=== PATIENT | female | born 1990 | race Two or more races ===

== ENCOUNTER 2024-05-23 23:26 | Inpatient (IN) | payer OTHER ==
[~2024-05-23] VITALS: Ht 160 cm; Wt 70.2 kg
--- NOTE | 2024-05-23 23:56 | ED.PDOC ---
History of present illness HPI Comments 34-year-old female came to the emergency room due to nausea and vomiting. Patient has history of hypertension and diabetes. States she has good compliance to her medications. For the past few hours. Patient has been having multiple bolus of nausea and vomiting, could not keeping anything in. Patient has history of diabetic ketoacidosis, and she feels she is having the same again today. Blood sugar on scene was 300, and was tachycardic at130's. Chief Complaint: Nausea and vomiting Time Seen by MD: 23:55 History of present illness: Hand Coper Notes Allergies: Coded Allergies: NO KNOWN ALLERGIES (Unverified , 05/24/24) Information Source: Patient Mode of Arrival: EMS Timing: Hours Duration: Since onset Prehospital treatment: None [place]: Shaky, Sweaty Symptoms: Anxious, Shaky, Sweaty History of: Diabetes Modifying factors: Nothing Associated signs and symptoms: Headache Past Medical History PAST MEDICAL HISTORY: DM, HTN Past Medical History (Other): Diabetic ketoacidosis Surgical History: Denies all surgeries EMERGENCY MEDCL EMT History: Denies all EMERGENCY MEDCL EMT Hx Family History Family History: Reviewed,noncontributory to illness Social History Smoker: Non-Smoker Alcohol: Denies ETOH Use Drugs: Denies Drug Use Lives In: Home Constitutional: denies: chills, diaphoresis, fatigue, fever, malaise, sweats, weakness, others EENTM: denies: blurred vision, double vision, ear bleeding, ear discharge, ear drainage, ear pain, ear ringing, eye pain, eye redness, hearing loss, mouth pain, mouth swelling, nasal discharge, nose bleeding, nose congestion, nose pain, photophobia, tearing, throat pain, throat swelling, voice changes, others Respiratory: denies: cough, hemoptysis, orthopnea, SOB at rest, shortness of breath, SOB with excertion, stridor, wheezing, others Cardiovascular: denies: chest pain, dizzy spells, diaphoresis, Dyspnea on exert ion, edema, irregular heart beat, left arm pain, lightheadedness, palpitations, PND, syncope, others Gastrointestinal: reports: abdominal pain, nausea, vomiting; denies: abdomen distended, blood streaked bowels, constipated, diarrhea, dysphagia, difficulty swallowing, hematemesis, melena, poor appetite, poor fluid intake, rectal bleeding, rectal pain, others Genitourinary: denies: abnormal vagina bleeding, burning, dyspareunia, dysuria, flank pain, frequency, hematuria, incontinence, pain, , vagina discharge, urgency, others Neurological: denies: dizziness, fainting, headache, left sided numbness, left sided weakness, numbness, paresthesia, pre-existing deficit, right sided numbness, right sided weakness, seizure, speech problems, tingling, tremors, weakness, others Musculoskeletal: denies: back pain, gout, joint pain, joint swelling, muscle pain, muscle stiffness, neck pain, others Integumetry: denies: bruises, change in color, change in hair/nails, dryness, laceration, lesions, lumps, rash, wounds, others Allergic/Immunocompromised: denies: Difficulty Healing, Frequent Infections, Hives, Itching, others Hematologic/Lymphatic: denies: anemia, blood clots, easy bleeding, easy bruising, swollen glands, others Endocrine: denies: excessive hunger, excessive sweating, excessive thirst, excessive urination, flushing, intolerance to cold, intolerance to heat, unexplained weight gain, unexplained weight loss, others Psychiatric: denies: anxiety, bipolar disorder, depression, hopeless, panic disorder, schizophrenia, sleepless, suicidal, others Physical Exam General Appearance: No Apparent Distress, Normal HEENT: Normal ENT Inspection, Pharynx Normal, TMs Normal Neck: Full Range of Motion, Non-Tender, Normal, Normal Inspection Respiratory: Chest Non-Tender, Lungs Clear, No Accessory Muscle Use, No Respiratory Distress, Normal Breath Sounds Cardiovascular: No Edema, No JVD, No Murmur, No Gallop, Normal Peripheral Pulses, Regular Rate/Rhythm Breast Exam: Deferred Gastrointestinal: Epigastric, No Organomegaly, No Pulsatile Mass, Normal Bowel Sounds, Soft, Tenderness Genitalia: Deferred Pelvic: Deferred Rectal: Deferred Extremities: No calf tenderness, Normal capillary refill, Normal inspection, Normal range of motion, Non-tender, No pedal edema Musculoskeletal : Apperance: Normal Neurologic: Alert, analog ic design architect II-XII nml as Tested, No Motor Deficits, Normal Affect, Normal Mood, No Sensory Deficits Cerebellar Function: Normal Reflexes: Normal Skin: Dry, Normal Color, Warm Lymphatic: No Adenopathy Was a procedure done? Was a procedure done?: No Differential Diagnosis (DM) Differential Diagnosis: Dehydration, DKA, Electrolyte Abnormality, Gastritis, Gastroenteritis, Hyperglycemia, UTI X-Ray, Labs, Meds, VS Vital Signs Date Time Temp Pulse Resp B/P (MAP) Pulse Ox O2 Delivery O2 Flow Rate FiO2 05/24/24 00:48 Room Air* 0 21 05/23/24 23:45 97.6 132 24 109/75 (86) 96 Lab Test 05/24/24 01:00 05/24/24 00:11 05/23/24 23:41 Range/Units Urine Color Light-yellow Yellow Urine Clarity Clear Clear Urine pH 5.0 5.0-9.0 Urine Specific [place] 1.025 1.001-1.035 Urine Protein Trace H Negative Urine Ketones 4+ H Negative Urine Blood Negative Negative /uL Urine Nitrite Negative Negative Urine Bilirubin Negative Negative Urine Urobilinogen Normal Negative mg/dL Urine Leukocyte Esterase Negative Negative /uL Urine RBC 1 0 - 4 /hpf Urine WBC None seen 0 - 5 /hpf Urine Squamous Epithelial Cells Few <5 /hpf Urine Bacteria None seen None Seen /hpf Urine Hyaline Casts Few 0 - 2 /lpf Urine Yeast (Budding) Occasional None Seen /hpf Urine Glucose 4+ H Normal mg/dL White Blood Count 28.1 H 4.4-10.8 10^3/uL Red Blood Count 6.06 H 4.0-5.20 10^6/uL Hemoglobin 17.6 H 12.2-16.2 g/dL Hematocrit 54.4 H 36.0-46.0 % Mean Corpuscular Volume 89.7 80.0-100.0 fL Mean Corpuscular Hemoglobin 29.0 28.0-32.0 pg Mean Corpuscular Hemoglobin Concent 32.3 32.0-36.0 g/dL Red Cell Distribution Width 14.0 11.8-14.3 % Platelet Count 738 H 140-450 10^3/uL Mean Platelet Volume 8.2 6.9-10.8 fL Neutrophils (%) (Auto) 37.0-80.0 % Lymphocytes (%) (Auto) 10.0-50.0 % Monocytes (%) (Auto) 0.0-12.0 % Basophils (%) (Auto) 0.0-2.0 % Neutrophils # (Auto) 1.6-8.6 10 ^3/uL Lymphocytes # (Auto) 0.4-5.4 10 ^3/uL Monocytes # (Auto) 0-1.3 10 ^3/uL Differential Total Cells Counted 100.0 100 Neutrophils % (Manual) 89 H 37.0-80.0 Band Neutrophils % (Manual) 0 Lymphocytes % (Manual) 7 L 10.0-50.0 Monocytes % (Manual) 4 0-12 Eosinophils % (Manual) 0 0-7 Basophils % (Manual) 0 0.0-2.0 Metamyelocytes % (manual) 0 Myelocytes % (Manual) 0 Promyelocytes % (Manual) 0 Blast Cells % (Manual) 0 Reactive Lymphocytes 0 Platelet Estimate Markedly increased Large Platelets Few Giant Platelets Few Sodium Level 134 L 136-145 mmol/L Potassium Level 4.3 3.5-5.1 mmol/L Chloride Level 99 98-107 mmol/L Carbon Dioxide Level < 10 *L 20-31 mmol/L Anion Gap 25.51570 H 5-15 Blood Urea Nitrogen 18 9-23 mg/dL Creatinine 1.43 H 0.550-1.02 mg/dL Glomerular Filtration Rate Calc 49 >90 mL/min BUN/Creatinine Ratio 12.6 10.0-20.0 Serum Glucose 408 *H 74-106 mg/dL Calcium Level 10.6 H 8.7-10.4 mg/dL Beta-Hydroxybutyric Acid Pending POC Glucose 342 H 70-106 mg/dl Current Medications Medications (Trade) Dose Ordered Sig/Cynhtia Route Start Time Stop Time Status Last Admin Ondansetron HCl (Zofran) 4 mg ONCE ONCE IV 05/24/24 00:00 05/24/24 00:01 DC 05/24/24 00:39 Sodium Chloride 1,000 ml @ 1,000 mls/hr Q1H ONCE IV 05/24/24 00:00 05/24/24 00:59 DC 05/24/24 00:37 Famotidine (Pepcid Injection) 20 mg ONCE ONCE IV 05/24/24 00:00 05/24/24 00:01 DC 05/24/24 00:41 Time of 1ST Reevaluation: 23:50 Reevaluation 1ST: Unchanged Patient Education/Counseling: Diagnosis, Treatment Family Education/Counseling: No Family Present Departure 1 Departure Time of Disposition: 02:15 (Patient presents in DKA. Treating treating patient with fluids and insulin. We will admit patient to ICU) Impression: Primary Impression: DKA, type 2 Qualified Codes: E11.10 - Type 2 diabetes mellitus with ketoacidosis without coma Additional Impression: Projectile vomiting with nausea Disposition: ADMITTED INPATIENT Admit to: ICU Condition: Critical Critical Care Note Critical Care Time?: Yes (35 min-critical care time only) Critical care comment: Hyperglycemia, DKA Authorized and Performed by: Reshma Rudolph MD Total critical care time: Approximately 38 minutes Due to a high probability of clinically significant, life threatening deterioration, the patient required my highest level of preparedness to intervene emergently and I personally spent this critical care time directly and personally managing the patient. This critical care time included obtaining a history; examining the patient; pulse oximetry; ordering and review of studies; arranging urgent treatment with development of a management plan; evaluation of patient's response to treatment; frequent reassessment; and, discussions with other providers. This critical care time was performed to assess and manage the high probability of imminent, life-threatening deterioration that could result in multi-organ failure. It was exclusive of separately billable procedures and treating other patients and teaching time. Please see my other sections and the rest of the note for further information on patient assessment and treatment. Stability Stability form required: No Heart Score Heart Score: Heart Score Response (Comments) Value History N/A 0 EKG N/A 0 Age N/A 0 Risk Factors N/A 0 Troponin N/A 0 Total 0 I personally scribed for RESHMA RUDOLPH MD ([email or web address]) on 05/23/24 at 23:56. Electronically submitted by Doe House ([email or web address]). RESHMA RUDOLPH MD May 23, 2024 23:56
[2024-05-24 00:22] LABS: Hemoglobin 17.6 g/dL (12.2-16.2)
[2024-05-24 00:24] LABS: Hematocrit 54.4 % (36.0-46.0); Mean Corpuscular Hgb Conc. 32.3 g/dL (32.0-36.0); Mean Corpuscular Volume 89.7 fL (80.0-100.0); Platelet Count (auto) 738 10^3/uL (140-450); Red Blood Cells 6.06 10^6/uL (4.0-5.20); White Blood Cell 28.1 10^3/uL (4.4-10.8)
[2024-05-24] MEDS: SODIUM CHLORIDE 0.9% 1,000 ML IV ONE (00:37)
[2024-05-24] MEDS: ONDANSETRON HCL 4 MG/2 ML VIAL IV ONE ×2 (00:39→03:13)
[2024-05-24 00:41] LABS: Band Neutrophils % (manual) 0; Basophils % (manual) 0 (0.0-2.0); Blast Cells 0; Eosinophils % (manual) 0 (0-7); Metamyelocytes % 0; Myelocytes % 0; Promyelocytes % 0; Reactive Lymphocytes 0
[2024-05-24] MEDS: FAMOTIDINE (10MG/ML) 2ML VL IV ONE (00:41)
[2024-05-24 01:35] LABS: Lymphocytes % (manual) 7 (10.0-50.0); Monocytes % (manual) 4 (0-12)
[2024-05-24 01:36] LABS: Giant Platelets Few; Large Platelets FEW
[2024-05-24 01:37] LABS: Platelet Estimate Markedly Increased
[2024-05-24 01:44] LABS: Urine Bacteria None Seen /hpf (None Seen); Urine WBC None Seen /hpf (0 - 5)
[2024-05-24 01:55] LABS: Urine Blood Negative /uL (Negative); Urine Budding Yeast OCCASIONAL /hpf (None Seen); Urine Clarity Clear (Clear); Urine Color Light-Yellow (Yellow); Urine Hyaline Cast FEW /lpf (0 - 2); Urine Protein, UAD TRACE (Negative); Urine Specific Gravity 1.025 (1.001-1.035); Urine Squamous Epithelial Cell FEW /hpf (<5); Urine Urobilinogen Normal (Negative)
--- NOTE | 2024-05-24 02:00 | DVH ---
CHEST RADIOGRAPH Indication: vomiting Technique: Frontal and lateral view of the chest was obtained Comparison: None FINDINGS: Lines and Tubes: None Lungs: Clear Pleura: No effusion. No pneumothorax. Cardiomediastinal contours: Unremarkable Bones: Unremarkable IMPRESSION: 1. No evidence of acute disease.
[2024-05-24 02:02] LABS: Chloride 99 mmol/L (98-107); Potassium 4.3 mmol/L (3.5-5.1)
[2024-05-24 02:03] LABS: Anion Gap 25.00001 (5-15)
[2024-05-24 02:06] LABS: Calcium 10.6 mg/dL (8.7-10.4); Sodium 134 mmol/L (136-145)
[2024-05-24 02:08] LABS: BUN/Creatinine Ratio 12.6 (10.0-20.0); Blood Urea Nitrogen 18 mg/dL (9-23); Carbon Dioxide < 10 mmol/L (20-31)
[2024-05-24 02:11] LABS: Glucose 408 mg/dL (74-106)
[2024-05-24] MEDS ORDERED: DEXTROSE (50%) 50ML SYRG IV PRN ×2 (02:15→13:30)
[2024-05-24] MEDS: SODIUM CHLORIDE 0.9% 1,000 ML IV SCH ×3 (02:38→11:44)
[2024-05-24] MEDS: INSULIN LANTUS (GLARGINE) 1 /0.01ml (100units/ml) SC ONE ×2 (02:44→13:44)
[2024-05-24] MEDS: ACCU-CHEK COMFORT CURVE STRIP VI SCH ×2 (02:48→20:11)
[2024-05-24] MEDS: INSULIN DRIP 100 UNIT/100ML 100 ML IV SCH (02:49)
[2024-05-24 03:00] VITALS: PULSE 125; RESP 15; O2SAT 99
[2024-05-24] MEDS ORDERED: DOCUSATE SOD 100 MG CAP PO PRN (03:15)
[2024-05-24] MEDS ORDERED: HYDROcodone-ACET 5/325MG TAB PO PRN (03:15)
[2024-05-24] MEDS ORDERED: hydrALAZINE HCL 20 MG/ML VL IV PRN (03:15)
[2024-05-24 04:05] LABS: Magnesium 2.7 mg/dL (1.6-2.6); Phosphorus 7.8 mg/dL (2.4-5.1)
--- NOTE | 2024-05-24 04:50 | DVHHP2 ---
History of Present Illness Reason for Visit: Diabetic ketoacidosis History of Present Illness The patient is a 34-year-old female with past medical history of DKA, DM, and hypertension who presented to [facility] ED for evaluation of nausea and vomiting. Patient reports having multiple intractable nausea, vomiting unable to keep anything down getting worse that prompted this visit. Patient was seen and evaluated in the ED, laboratory data shows elevated WBC 28.1, hemoglobin 17.6, hematocrit 54.4, platelets 738, sodium 134, potassium 4.3, BUN 18, creatinine 1.43, GFR 49, glucose 408, anion gap 25, acetone > 4.500, phosphorus 7.8, Mag 2.7, calcium 10.6. Chest x-ray show no evidence of acute disease. Patient was started insulin drip, please see medication section in the computer. On my assessment, patient denied chest pain, no headache, no dizziness, no diaphoresis, no shortness of breath, no abdominal pain, no diarrhea, no nausea, vomiting, fever chills. Patient was admitted for further evaluation medical management. Past Medical History DM, HTN, Diabetic ketoacidosis Past Surgical History Denies all surgeries Family History Reviewed, noncontributory to the management of this case. Past Social History The patient lives at home, denies smoking, alcohol or illicit drugs abuse. Review of Systems Constitutional: Yes: Weakness; No: Fever, Chills, Sweats, Malaise, Other Eyes: No: Pain, Vision change, Conjunctivae inflammation, Eyelid inflammation, Other, Redness ENT: No: Ear pain, Ear discharge, Nose pain, Nose discharge, Nose congestion, Mouth pain, Mouth swelling, Throat pain, Throat swelling, Other Respiratory: No: Cough, Dry, Shortness of breath, SOB with excertion, Wheezing, Hemoptysis, Pleuritic Pain, Sputum, Wheezing, Other Cardiovascular: No: Chest Pain, Palpitations, Orthopnea, Paroxysmal Noc. Dyspnea, Edema, Lt Headedness, Other Gastrointestinal: Nausea, Vomiting, Abdominal Pain; No: Diarrhea, Constipation, Melena, Hematochezia, Other Genitourinary: No Dysuria, No Frequency, No Incontinence, No Hematuria, No Retention, No Other Musculoskeletal: No: other, neck pain, shoulder pain, arm pain, back pain, hand pain, leg pain, foot pain Skin: No: Rash, Lesions, Jaundice, Bruising, Other Neurological: No: Weakness, Numbness, Incoordination, Change in speech, Confusion, Seizures, Other Allergies: Coded Allergies: NO KNOWN ALLERGIES (Unverified , 05/24/24) Medications Current Medications Medications Dose Ordered Sig/Cynthia Route Start Time Stop Time Status Last Admin Dose Admin Sodium Chloride 1,000 ml @ 500 mls/hr Q2H IV 05/24/24 02:15 05/24/24 06:14 05/24/24 04:29 500 MLS/HR Sodium Chloride 1,000 ml @ 250 mls/hr Q4H IV 05/24/24 06:15 05/24/24 08:14 Sodium Chloride 1,000 ml @ 150 mls/hr Q6H40M IV 05/24/24 08:15 Insulin Human (Reg)/Sodium Chloride 100 ml @ 0.5 mls/hr Q24H IV 05/24/24 02:15 05/24/24 02:49 6 MLS/HR Dextrose 50 ml UD PRN IV 05/24/24 02:15 Diagnostic Test (Pha) 1 strip Q90MIN 05/24/24 03:00 05/24/24 04:23 1 STRIP Insulin Glargine 15 units DAILY SC 05/25/24 10:00 Hydralazine HCl 10 mg Q6HP PRN IV 05/24/24 03:15 Heparin Sodium (Porcine) 5,000 units Q12HR SC 05/24/24 10:00 Acetaminophen/ Hydrocodone Bitart 1 tab Q4HP PRN PO 05/24/24 03:15 Ondansetron HCl 4 mg Q4HP PRN IV 05/24/24 03:15 Docusate Sodium 100 mg BIDPRN PRN PO 05/24/24 03:15 Acetaminophen 650 mg Q6HP PRN PO 05/24/24 03:15 Exam Vital Signs Vital Signs Date Time Temp Pulse Resp B/P (MAP) Pulse Ox O2 Delivery O2 Flow Rate FiO2 05/24/24 04:00 126 21 130/79 (96) 99 05/24/24 03:00 Room Air* 0 21 05/24/24 02:24 97.7 97.7 General Appearance: Alert, Oriented X3, Cooperative, No acute distress HEENT: Atraumatic, PERRLA, EOMI, Mucous membr. moist/pink Respiratory: Clear to auscultation, Normal air movement Cardiovascular: Regular rate, Normal S1, Normal S2, No murmurs Abdominal: Normal bowel sounds, Soft, No tenderness, No hepatospenomegaly, No masses Extremities: No clubbing, No cyanosis, No edema, Normal pulses, No tenderness/swelling Skin: No rashes, No breakdown, No significant lesion Neuro: Normal speech, Normal tone, Sensation intact, Cranial nerves 3-12 NL, Reflexes 2+, Other (Generalized weakness) Psych/Mental Status: Mental status NL, Mood NL Labs/Xrays Labs Test 05/24/24 04:25 05/24/24 02:30 05/24/24 02:29 05/24/24 01:00 Range/Units POC Glucose 230 H 70-106 mg/dl Phosphorus Level 7.8 H 2.4-5.1 mg/dL Magnesium Level 2.7 H 1.6-2.6 mg/dL Blood Gas Specimen Type Arterial Blood Gas Sample Site Left brachial Blood Gas Patient Temperature 37.0 Arterial Blood Date Drawn [id number] Arterial Blood pH 7.184 *L 7.350-7.450 Arterial Blood Partial Pressure CO2 < 12.6 *L 32.0-45.0 mmHg Arterial Blood Partial Pressure O2 119.6 H 83.0-108.0 mmHg Arterial Blood Oxygen Saturation 97.9 94.0-98.0 % Arterial Blood Oxyhemoglobin 96.4 94.0-98.0 % Arterial Blood Carboxyhemoglobin 0.9 0.5-1.5 % Arterial Blood Methemoglobin 0.6 0.0-1.5 % Chris Test N/a Blood Gas Total Hemoglobin 17.10 H 12.0-16.0 g/dL Blood Gas Liter Flow 0.00 Blood Gas Modality Room air FiO2 % 21.0 Blood Gas Critical Value Read Back yes Blood Gas Notified Whom jeoy Rudolph md Blood Gas Notified Time [id number] Blood Gas Notified By miles dinero, rt Urine Color Light-yellow Yellow Urine Clarity Clear Clear Urine pH 5.0 5.0-9.0 Urine Specific [place] 1.025 1.001-1.035 Urine Protein Trace H Negative Urine Ketones 4+ H Negative Urine Blood Negative Negative /uL Urine Nitrite Negative Negative Urine Bilirubin Negative Negative Urine Urobilinogen Normal Negative mg/dL Urine Leukocyte Esterase Negative Negative /uL Urine RBC 1 0 - 4 /hpf Urine WBC None seen 0 - 5 /hpf Urine Squamous Epithelial Cells Few <5 /hpf Urine Bacteria None seen None Seen /hpf Urine Hyaline Casts Few 0 - 2 /lpf Urine Yeast (Budding) Occasional None Seen /hpf Urine Glucose 4+ H Normal mg/dL Test 05/24/24 00:11 Range/Units White Blood Count 28.1 H 4.4-10.8 10^3/uL Red Blood Count 6.06 H 4.0-5.20 10^6/uL Hemoglobin 17.6 H 12.2-16.2 g/dL Hematocrit 54.4 H 36.0-46.0 % Mean Corpuscular Volume 89.7 80.0-100.0 fL Mean Corpuscular Hemoglobin 29.0 28.0-32.0 pg Mean Corpuscular Hemoglobin Concent 32.3 32.0-36.0 g/dL Red Cell Distribution Width 14.0 11.8-14.3 % Platelet Count 738 H 140-450 10^3/uL Mean Platelet Volume 8.2 6.9-10.8 fL Neutrophils (%) (Auto) 37.0-80.0 % Lymphocytes (%) (Auto) 10.0-50.0 % Monocytes (%) (Auto) 0.0-12.0 % Basophils (%) (Auto) 0.0-2.0 % Neutrophils # (Auto) 1.6-8.6 10 ^3/uL Lymphocytes # (Auto) 0.4-5.4 10 ^3/uL Monocytes # (Auto) 0-1.3 10 ^3/uL Differential Total Cells Counted 100.0 100 Neutrophils % (Manual) 89 H 37.0-80.0 Band Neutrophils % (Manual) 0 Lymphocytes % (Manual) 7 L 10.0-50.0 Monocytes % (Manual) 4 0-12 Eosinophils % (Manual) 0 0-7 Basophils % (Manual) 0 0.0-2.0 Metamyelocytes % (manual) 0 Myelocytes % (Manual) 0 Promyelocytes % (Manual) 0 Blast Cells % (Manual) 0 Reactive Lymphocytes 0 Platelet Estimate Markedly increased Large Platelets Few Giant Platelets Few Sodium Level 134 L 136-145 mmol/L Potassium Level 4.3 3.5-5.1 mmol/L Chloride Level 99 98-107 mmol/L Carbon Dioxide Level < 10 *L 20-31 mmol/L Anion Gap 25.76552 H 5-15 Blood Urea Nitrogen 18 9-23 mg/dL Creatinine 1.43 H 0.550-1.02 mg/dL Glomerular Filtration Rate Calc 49 >90 mL/min BUN/Creatinine Ratio 12.6 10.0-20.0 Serum Glucose 408 *H 74-106 mg/dL Calcium Level 10.6 H 8.7-10.4 mg/dL Beta-Hydroxybutyric Acid > 4.500 H < 0.4 mmol/L PATIENT: ELY HERNANDEZ ACCT: [id number] UNIT: [id number] : 1990 LOC: ER ROOM / BED: / AGE / SEX: 34 / F ADM STATUS: REG ER SERVICE 014 ORDERING PHYSICIAN: JOEY RUDOLPH MD PROCEDURE(s): CXR2 - CHEST TWO VIEWS ROUTINE REASON: vomiting ORDER NUMBER(s): [id number], ACCESSION NUMBER(s): [id number] CHEST RADIOGRAPH Indication: vomiting Technique: Frontal and lateral view of the chest was obtained Comparison: None FINDINGS: Lines and Tubes: None Lungs: Clear Pleura: No effusion. No pneumothorax. Cardiomediastinal contours: Unremarkable Bones: Unremarkable IMPRESSION: 1. No evidence of acute disease. Assessment/Plan Assessment/Plan Diabetic ketoacidosis Intractable nausea and vomiting Thrombocytosis Polycythemia vera Generalized weakness Leukocytosis, unspecified Electrolyte imbalance Plan 1. Admit to intensive care unit 2. Breathing treatment 3. Pain control management 4. IV antibiotic management 5. Management of fluids and electrolytes 6. Consultation for hospitalist 7. Diagnostic test chest x-ray 8. DVT prophylaxis on heparin 9. Repeat labs CBC, CMP in a.m. 10. Home medication reviewed and reconciled 11. Continue with current medical management 12. Treatment plan discussed with patient and RN. Patient verbalized understanding. Plan discussed with: Patient, Other (RN) My Orders Orders - BASIL HELLER DNP Procedure Category Date Status Time Hydralazine Injection PHA 05/24/24 In Process (Apresoline Inject 03:15 Blood Culture DEBBY 05/24/24 Logged 03:13 Consistent DIET 05/24/24 Transmitted Carb(Ccho)Diabetes Breakfast Heparin Sodium PHA 05/24/24 In Process (Porcine) 10:00 Allergies BASSAM 05/24/24 In Process 03:13 Code Status CODE 05/24/24 Transmitted 03:13 Oxygen Per Hour RT 05/24/24 Transmitted 03:13 Hydrocodone-Acet PHA 05/24/24 In Process 5/325mg Tab ([place] 03:15 Ondansetron Hcl PHA 05/24/24 In Process (Zofran) 03:15 Docusate Sodium PHA 05/24/24 In Process Capsule (Colace 03:15 Fall Risk Precautions [facility] 05/24/[address] 03:13 Complete Blood Count LAB 05/25/24 Verified 04:00 Comprehensive LAB 05/25/24 Verified Metabolic Panel 04:00 Condition: Critical BASSAM 05/24/24 In Process 03:13 Acetaminophen Tablet PHA 05/24/24 In Process (Tylenol Tablet) 03:15 Sequential [facility] 05/24/24 In Process Compression Device Admit ADMIT 05/24/24 Verified 04:48 Nitroglycerin [facility] 05/24/24 Verified Sublingual (Ntrostat 05:00 Morphine Sulfate [facility] 05/24/24 Verified Injection 05:00 Notify Md Of Changes [facility] 05/24/24 Verified From Base 04:48 Posting Machine Operator For [facility] 05/24/24 Verified 24 Hours 04:48 Emergency Dysrhythmia [facility] 05/24/24 Verified Protocol 04:48 Rhythm Strips Once [facility] 05/24/24 Verified Every Shift 04:48 Oxygen By Nasal RT 05/24/24 Verified Cannula 04:48 Problem List: (1) Diabetic ketoacidosis (2) Intractable nausea and vomiting (3) Polycythemia vera (4) Thrombocytosis (5) Generalized weakness (6) Leukocytosis, unspecified (7) Electrolyte imbalance Date of Service: May 24, 2024 Billing Provider: BASIL HELLER DNP Common Visit Codes: 49962-HQVFGXH INP/OBS CARE (HIGH) BASIL HELLER DNP May 24, 2024 04:50
[2024-05-24] MEDS ORDERED: NITROGLYCERIN 0.4 MG SL TAB SL PRN (05:00)
[2024-05-24] MEDS ORDERED: MORPHINE SULFATE INJ 2 MG/ml SYRG IV PRN (05:00)
[2024-05-24] MEDS: ONDANSETRON HCL 4 MG/2 ML VIAL IV PRN (06:53)
[2024-05-24 07:27] LABS: Sodium 140 mmol/L (136-145)
[2024-05-24 07:28] LABS: Anion Gap 16.00001 (5-15)
[2024-05-24 07:29] LABS: Calcium 8.9 mg/dL (8.7-10.4)
[2024-05-24 07:33] LABS: BUN/Creatinine Ratio 19.3 (10.0-20.0); Blood Urea Nitrogen 17 mg/dL (9-23)
[2024-05-24 07:52] VITALS: PULSE 129; RESP 18; O2SAT 98
[2024-05-24 08:17] LABS: Chloride 114 mmol/L (98-107); Glucose 177 mg/dL (74-106); Potassium 5.5 mmol/L (3.5-5.1)
[2024-05-24 08:18] LABS: Carbon Dioxide < 10 mmol/L (20-31)
[2024-05-24] MEDS: cefTRIAXone 1GM/50ML D5W 50 ML IV ONE (10:09)
[2024-05-24] MEDS: HEPARIN SODIUM (PORCINE) 5000 UNITS/ML 1ML VIAL SC SCH (10:15)
[2024-05-24 10:23] LABS: Basophils # (auto) 0 10 ^3/uL (0-0.2); Eosinophils # (auto) 0 10 ^3/uL (0-0.8); Monocytes # (auto) 1.3 10 ^3/uL (0-1.3)
[2024-05-24 10:27] LABS: Basophils % (auto) 0.1 % (0.0-2.0); Hematocrit 39.2 % (36.0-46.0); Hemoglobin 12.9 g/dL (12.2-16.2); Lymphocytes # (auto) 3.7 10 ^3/uL (0.4-5.4); Lymphocytes % (auto) 16.6 % (10.0-50.0); Mean Corpuscular Hemoglobin 29.2 pg (28.0-32.0); Mean Corpuscular Volume 88.7 fL (80.0-100.0); Monocytes % (auto) 5.9 % (0.0-12.0); Neutrophils # (auto) 17.2 10 ^3/uL (1.6-8.6); Neutrophils % (auto) 77.4 % (37.0-80.0); Platelet Count (auto) 527 10^3/uL (140-450); Red Blood Cells 4.42 10^6/uL (4.0-5.20); Red Cell Distribution Width 13.4 % (11.8-14.3); White Blood Cell 22.2 10^3/uL (4.4-10.8)
[2024-05-24 10:31] LABS: Potassium 4.3 mmol/L (3.5-5.1); Sodium 137 mmol/L (136-145)
[2024-05-24 10:32] LABS: Anion Gap 12 (5-15)
[2024-05-24 10:38] LABS: BUN/Creatinine Ratio 23.7 (10.0-20.0); Blood Urea Nitrogen 18 mg/dL (9-23)
[2024-05-24 10:39] LABS: Calcium 8.2 mg/dL (8.7-10.4); Carbon Dioxide 12 mmol/L (20-31); Chloride 113 mmol/L (98-107); Glucose 201 mg/dL (74-106)
[2024-05-24] MEDS: SODIUM BICARB 8.4% 50Meq/50ml SYR Vial IV ONE (11:51)
[2024-05-24 16:30] VITALS: BP 122/69; PULSE 101; RESP 20; TEMP 97.7; O2SAT 100
[2024-05-24] MEDS ORDERED: ACCU-CHEK COMFORT CURVE STRIP VI SCH (17:00)
[2024-05-24] MEDS: InsuLIN REG 1unit/0.01ml Soln (100units/ml) SC SCH (17:00)
[2024-05-24 19:42] VITALS: BP 122/69; PULSE 101; RESP 20; TEMP 97.7; O2SAT 100
[2024-05-24] MEDS: ACETAMINOPHEN 325 MG TAB PO PRN (19:49)
[2024-05-24 20:00] VITALS: PULSE 100; PULSE 18; RESP 18; O2SAT 97
[2024-05-24 21:00] VITALS: BP 130/85; PULSE 99; RESP 18; TEMP 98.3; O2SAT 99
[2024-05-24] MEDS ORDERED: InsuLIN REG 1unit/0.01ml Soln (100units/ml) SC SCH (22:00)
[2024-05-24] MEDS: INSULIN LANTUS (GLARGINE) 1 /0.01ml (100units/ml) SC SCH (22:00)
[2024-05-25] VITALS (7 sets, daily range): BP systolic 125–147; BP diastolic 78–94; PULSE 85–99; RESP 17–18; TEMP 98–98.4; O2SAT 95–99
[2024-05-25 06:10] LABS: Basophils # (auto) 0 10 ^3/uL (0-0.2); Basophils % (auto) 0.2 % (0.0-2.0); Eosinophils # (auto) 0.1 10 ^3/uL (0-0.8); Eosinophils % (auto) 0.4 % (0.0-7.0); Hematocrit 37.3 % (36.0-46.0); Hemoglobin 12.5 g/dL (12.2-16.2); Lymphocytes # (auto) 5.1 10 ^3/uL (0.4-5.4); Lymphocytes % (auto) 32.6 % (10.0-50.0); Mean Corpuscular Hemoglobin 28.6 pg (28.0-32.0); Mean Corpuscular Hgb Conc. 33.5 g/dL (32.0-36.0); Mean Corpuscular Volume 85.3 fL (80.0-100.0); Monocytes # (auto) 0.8 10 ^3/uL (0-1.3); Monocytes % (auto) 5.3 % (0.0-12.0); Neutrophils # (auto) 9.6 10 ^3/uL (1.6-8.6); Neutrophils % (auto) 61.5 % (37.0-80.0); Nucleated Red Blood Cells % 0.1 %; Platelet Count (auto) 460 10^3/uL (140-450); Red Blood Cells 4.38 10^6/uL (4.0-5.20); Red Cell Distribution Width 13.4 % (11.8-14.3); White Blood Cell 15.6 10^3/uL (4.4-10.8)
[2024-05-25 06:28] LABS: Alkaline Phosphatase 74 U/L (46-116)
[2024-05-25 06:29] LABS: Anion Gap 10 (5-15); BUN/Creatinine Ratio 19.6 (10.0-20.0); Blood Urea Nitrogen 10 mg/dL (9-23); Glucose 95 mg/dL (74-106); Sodium 139 mmol/L (136-145)
[2024-05-25 06:36] LABS: Aspartate Aminotransferase 10 U/L (13-40); Carbon Dioxide 19 mmol/L (20-31); Chloride 110 mmol/L (98-107); Potassium 3.2 mmol/L (3.5-5.1)
[2024-05-25 06:37] LABS: Alanine Aminotransferase 9 U/L (7-40); Bilirubin, Total 0.3 mg/dL (0.2-1.0); Total Protein 5.2 g/dL (5.7-8.2)
[2024-05-25 06:51] LABS: Albumin 3.4 g/dL (3.2-4.8)
[2024-05-25] MEDS ORDERED: INSULIN LANTUS (GLARGINE) 1 /0.01ml (100units/ml) SC SCH (10:00)
[2024-05-25] MEDS: cefTRIAXone 1GM/50ML D5W 50 ML IV SCH (10:43)
[2024-05-25] MEDS: POTASSIUM CHL 20 Meq TABLET PO ONE (12:53)
--- NOTE | 2024-05-25 13:30 | DVHPN2 ---
Subjective The patient is seen and examined at bedside. The patient feel better today. Reviewed: Care Plan, H&P, Labs, Medications, Previous Orders, Radiology Changes from previous H/P or p: No Changes Eyes: No Pain, No Vision change, No Conjunctivae inflammation, No Eyelid inflammation, No Other, No Redness ENT: No Ear pain, No Ear discharge, No Nose pain, No Nose discharge, No Nose congestion, No Mouth pain, No Mouth swelling, No Throat pain, No Throat swelling, No Other Cardiovascular: No Chest Pain, No Palpitations, No Orthopnea, No Paroxysmal Noc. Dyspnea, No Edema, No Lt Headedness, No Other Respiratory: No Cough, No Dry, No Shortness of breath, No SOB with excertion, No Wheezing, No Hemoptysis, No Pleuritic Pain, No Sputum, No Other Gastrointestinal: Nausea, Vomiting, Abdominal Pain; No Diarrhea, No Constipation, No Melena, No Hematochezia, No Other Genitourinary: No Dysuria, No Frequency, No Incontinence, No Hematuria, No Retention, No Other Musculoskeletal: No other, No neck pain, No shoulder pain, No arm pain, No back pain, No hand pain, No leg pain, No foot pain Skin: No Rash, No Lesions, No Jaundice, No Bruising, No Other Objective Vitals Vital Signs Date Time Temp Pulse Resp B/P (MAP) Pulse Ox O2 Delivery O2 Flow Rate FiO2 05/25/24 08:28 98.0 96 18 126/78 (94) 95 98.0 05/25/24 08:00 Room Air* 0 21 Intake/Output Intake and Output 05/25/24 07:00 Intake Total 1637.5 ml Balance 1637.5 ml Intake Oral 825 ml IV Total 812.5 ml # Voids 2 General Appearance: Alert, Oriented X3, Cooperative, No acute distress HEENT: Atraumatic, PERRLA, EOMI, Mucous membr. moist/pink Neck: Supple Lungs: Clear to auscultation, Normal air movement Cardiovascular: Regular rate, Normal S1, Normal S2, No murmurs, Gallops, Rubs Neuro: Cranial nerves 3-12 NL Psych/Mental Status: Mental status NL Medications Current Medications Medications Dose Ordered Sig/Cynthia Route Start Time Stop Time Status Last Admin Dose Admin Hydralazine HCl 10 mg Q6HP PRN IV 05/24/24 03:15 Heparin Sodium (Porcine) 5,000 units Q12HR SC 05/24/24 10:00 05/25/24 10:55 5,000 UNITS Acetaminophen/ Hydrocodone Bitart 1 tab Q4HP PRN PO 05/24/24 03:15 Ondansetron HCl 4 mg Q4HP PRN IV 05/24/24 03:15 05/24/24 06:53 4 MG Docusate Sodium 100 mg BIDPRN PRN PO 05/24/24 03:15 Acetaminophen 650 mg Q6HP PRN PO 05/24/24 03:15 05/24/24 19:49 650 MG Nitroglycerin 0.4 mg Q5MINP PRN SL 05/24/24 05:00 Morphine Sulfate 2 mg Q30M PRN IV 05/24/24 05:00 Ceftriaxone Sodium 50 ml @ 100 mls/hr DAILY@09 IV 05/25/24 09:00 05/25/24 10:43 100 MLS/HR Insulin Glargine 40 units HS SC 05/24/24 22:00 05/24/24 22:00 40 UNITS Diagnostic Test (Pha) 1 strip ACHS 05/24/24 17:00 05/25/24 12:54 1 STRIP Insulin Human Regular AC SC 05/24/24 17:00 05/25/24 12:56 2 UNITS Dextrose 50 ml UD PRN IV 05/24/24 13:30 Laboratory Results Laboratory Tests 05/25/24 05:15 Chemistry Test 05/25/24 05:15 Albumin 3.4 g/dL (3.2-4.8) Calcium Level 9.0 mg/dL (8.7-10.4) Total Protein 5.2 g/dL (5.7-8.2) L LFT Test 05/25/24 05:15 Alanine Aminotransferase (ALT) 9 U/L (7-40) Alkaline Phosphatase 74 U/L (46-116) Aspartate Amino Transferase (AST) 10 U/L (13-40) L Total Bilirubin 0.3 mg/dL (0.2-1.0) Urinalysis Test 05/24/24 01:00 Urine Color Light-yellow (Yellow) Urine Clarity Clear (Clear) Urine pH 5.0 (5.0-9.0) Urine Specific [place] 1.025 (1.001-1.035) Urine Protein Trace (Negative) H Urine Ketones 4+ (Negative) H Urine Blood Negative /uL (Negative) Urine Nitrite Negative (Negative) Urine Bilirubin Negative (Negative) Urine Urobilinogen Normal mg/dL (Negative) Urine Leukocyte Esterase Negative /uL (Negative) Urine RBC 1 /hpf (0 - 4) Urine WBC None seen /hpf (0 - 5) Urine Squamous Epithelial Cells Few /hpf (<5) Urine Bacteria None seen /hpf (None Seen) Urine Hyaline Casts Few /lpf (0 - 2) Urine Yeast (Budding) Occasional /hpf (None Urine Glucose 4+ mg/dL (Normal) H Microbiology Microbiology Date/Time Source Procedure Growth Status 05/24/24 10:00 Blood Blood Culture - Preliminary NO GROWTH AFTER 24 HOURS OF INCUBATION. Resulted Labs and/or images reviewed: Labs reviewed by me Assessment/Plan Assessment/Plan Diabetic ketoacidosis, resolved Intractable nausea and vomiting Thrombocytosis Polycythemia vera Generalized weakness Leukocytosis, unspecified Electrolyte imbalance Continuing current management. Continuing with Lantus 40 units subQ q.h.s.. Continuing with sliding Scale insulin. Continuing with Zofran. Encouraged the patient to be out of bed and ambulate Replace electrolytes as needed. Discharge planning . This medical document was created using an electronic medical record system with [employer] direct computerized dictation system. Although this document has been carefully reviewed, there may still be some phonetic and typographical errors. These areas are purely typographical due to imperfections of the software programs, and do not reflect any compromise in the patient's medical care. Plan discussed with: Patient My Orders Orders - TERESA HUSTON MD Procedure Category Date Status Time Glucose Blood PHA 05/24/24 In Process (Accu-Chek Comfort 17:00 Insulin R (Human) PHA 05/24/24 In Process (Insulin R) 17:00 Dextrose 50% Syringe PHA 05/24/24 In Process 13:30 Transfer Orders XFER 05/24/24 Transmitted 13:02 Date of Service: May 25, 2024 Billing Provider: TERESA HUSTON MD Common Visit Codes: [id number] INP/OBS CARE(HIGH) TERESA HUSTON MD May 25, 2024 13:30
[2024-05-26 01:00] VITALS: BP 141/96; PULSE 88; RESP 16; TEMP 98.3; O2SAT 98
[2024-05-26 05:00] VITALS: BP 146/96; PULSE 80; RESP 18; TEMP 98.1; O2SAT 97
[2024-05-26 08:00] VITALS: PULSE 78; RESP 18; O2SAT 99
[2024-05-26 09:00] VITALS: BP 127/79; PULSE 87; RESP 18; TEMP 98; O2SAT 96
[2024-05-26 12:35] LABS: Eosinophils # (auto) 0.1 10 ^3/uL (0-0.8); Hemoglobin 13.1 g/dL (12.2-16.2); Neutrophils # (auto) 5.5 10 ^3/uL (1.6-8.6); Red Cell Distribution Width 13.4 % (11.8-14.3)
[2024-05-26 12:38] LABS: Basophils # (auto) 0.1 10 ^3/uL (0-0.2); Basophils % (auto) 0.8 % (0.0-2.0); Eosinophils % (auto) 0.9 % (0.0-7.0); Hematocrit 37.9 % (36.0-46.0); Lymphocytes # (auto) 4.9 10 ^3/uL (0.4-5.4); Lymphocytes % (auto) 42.8 % (10.0-50.0); Mean Corpuscular Hgb Conc. 34.6 g/dL (32.0-36.0); Mean Corpuscular Volume 83.7 fL (80.0-100.0); Monocytes # (auto) 0.8 10 ^3/uL (0-1.3); Monocytes % (auto) 6.8 % (0.0-12.0); Neutrophils % (auto) 48.7 % (37.0-80.0); Platelet Count (auto) 452 10^3/uL (140-450); Red Blood Cells 4.53 10^6/uL (4.0-5.20); White Blood Cell 11.4 10^3/uL (4.4-10.8)
[2024-05-26 13:08] LABS: Alanine Aminotransferase 15 U/L (7-40); Albumin 3.8 g/dL (3.2-4.8); Alkaline Phosphatase 78 U/L (46-116); Anion Gap 7 (5-15); Aspartate Aminotransferase 13 U/L (13-40); Calcium 9.4 mg/dL (8.7-10.4); Carbon Dioxide 24 mmol/L (20-31); Magnesium 2.2 mg/dL (1.6-2.6); Potassium 3.7 mmol/L (3.5-5.1); Sodium 138 mmol/L (136-145); Total Protein 5.7 g/dL (5.7-8.2)
[2024-05-26 13:09] LABS: Bilirubin, Total 0.3 mg/dL (0.2-1.0); Blood Urea Nitrogen 7 mg/dL (9-23); Chloride 107 mmol/L (98-107); Glucose 145 mg/dL (74-106)
--- NOTE | 2024-05-26 13:25 | DVHDS2 ---
Discharge Summary Date of Admission May 24, 2024 at 04:48 Date of Discharge: May 26, 2024 Labs/Diagnostic Data: Laboratory Results Test 05/26/24 12:50 05/26/24 12:20 05/24/24 02:30 05/24/24 02:29 POC Glucose 142 mg/dl (70-106) White Blood Count 11.4 10^3/uL (4.4-10.8) Red Blood Count 4.53 10^6/uL (4.0-5.20) Hemoglobin 13.1 g/dL (12.2-16.2) Hematocrit 37.9 % (36.0-46.0) Mean Corpuscular Volume 83.7 fL (80.0-100.0) Mean Corpuscular Hemoglobin 29.0 pg (28.0-32.0) Mean Corpuscular Hemoglobin Concent 34.6 g/dL (32.0-36.0) Red Cell Distribution Width 13.4 % (11.8-14.3) Platelet Count 452 10^3/uL (140-450) Mean Platelet Volume 7.1 fL (6.9-10.8) Neutrophils (%) (Auto) 48.7 % (37.0-80.0) Lymphocytes (%) (Auto) 42.8 % (10.0-50.0) Monocytes (%) (Auto) 6.8 % (0.0-12.0) Eosinophils (%) (Auto) 0.9 % (0.0-7.0) Basophils (%) (Auto) 0.8 % (0.0-2.0) Neutrophils # (Auto) 5.5 10 ^3/uL (1.6-8.6) Lymphocytes # (Auto) 4.9 10 ^3/uL (0.4-5.4) Monocytes # (Auto) 0.8 10 ^3/uL (0-1.3) Eosinophils # (Auto) 0.1 10 ^3/uL (0-0.8) Basophils # (Auto) 0.1 10 ^3/uL (0-0.2) Nucleated Red Blood Cells 0.0 % Sodium Level 138 mmol/L (136-145) Potassium Level 3.7 mmol/L (3.5-5.1) Chloride Level 107 mmol/L (98-107) Carbon Dioxide Level 24 mmol/L (20-31) Anion Gap 7 (5-15) Blood Urea Nitrogen 7 mg/dL (9-23) Creatinine 0.50 mg/dL (0.550-1.02) Glomerular Filtration Rate Calc 125 mL/min (>90) BUN/Creatinine Ratio 14.0 (10.0-20.0) Serum Glucose 145 mg/dL (74-106) Calcium Level 9.4 mg/dL (8.7-10.4) Magnesium Level 2.2 mg/dL (1.6-2.6) Total Bilirubin 0.3 mg/dL (0.2-1.0) Aspartate Amino Transferase (AST) 13 U/L (13-40) Alanine Aminotransferase (ALT) 15 U/L (7-40) Alkaline Phosphatase 78 U/L (46-116) Total Protein 5.7 g/dL (5.7-8.2) Albumin 3.8 g/dL (3.2-4.8) Serum Osmolality 326 mOsm/kg (278-298) Phosphorus Level 7.8 mg/dL (2.4-5.1) Blood Gas Specimen Type Arterial Blood Gas Sample Site Left brachial Blood Gas Patient Temperature 37.0 Arterial Blood Date Drawn [id number] Arterial Blood pH 7.184 (7.350-7.450) Arterial Blood Partial Pressure CO2 < 12.6 mmHg (32.0-45.0) Arterial Blood Partial Pressure O2 119.6 mmHg (83.0-108.0) Arterial Blood Oxygen Saturation 97.9 % (94.0-98.0) Arterial Blood Oxyhemoglobin 96.4 % (94.0-98.0) Arterial Blood Carboxyhemoglobin 0.9 % (0.5-1.5) Arterial Blood Methemoglobin 0.6 % (0.0-1.5) Chris Test N/a Blood Gas Total Hemoglobin 17.10 g/dL (12.0-16.0) Blood Gas Liter Flow 0.00 Blood Gas Modality Room air FiO2 % 21.0 Blood Gas Critical Value Read Back yes Blood Gas Notified Whom joey Rudolph md Blood Gas Notified Time [id number] Blood Gas Notified By miles dinero, rt Test 05/24/24 01:00 05/24/24 00:11 Urine Color Light-yellow (Yellow) Urine Clarity Clear (Clear) Urine pH 5.0 (5.0-9.0) Urine Specific [place] 1.025 (1.001-1.035) Urine Protein Trace (Negative) Urine Ketones 4+ (Negative) Urine Blood Negative /uL (Negative) Urine Nitrite Negative (Negative) Urine Bilirubin Negative (Negative) Urine Urobilinogen Normal mg/dL (Negative) Urine Leukocyte Esterase Negative /uL (Negative) Urine RBC 1 /hpf (0 - 4) Urine WBC None seen /hpf (0 - 5) Urine Squamous Epithelial Cells Few /hpf (<5) Urine Bacteria None seen /hpf (None Seen) Urine Hyaline Casts Few /lpf (0 - 2) Urine Yeast (Budding) Occasional /hpf (None Urine Glucose 4+ mg/dL (Normal) Differential Total Cells Counted 100.0 (100) Neutrophils % (Manual) 89 (37.0-80.0) Band Neutrophils % (Manual) 0 Lymphocytes % (Manual) 7 (10.0-50.0) Monocytes % (Manual) 4 (0-12) Eosinophils % (Manual) 0 (0-7) Basophils % (Manual) 0 (0.0-2.0) Metamyelocytes % (manual) 0 Myelocytes % (Manual) 0 Promyelocytes % (Manual) 0 Blast Cells % (Manual) 0 Reactive Lymphocytes 0 Platelet Estimate Markedly increased Large Platelets Few Giant Platelets Few Beta-Hydroxybutyric Acid > 4.500 mmol/L (< 0.4) Other Laboratory Tests 05/26/24 12:20 Brief Hx & Hospital Course: Final diagnoses: Acute diabetic ketoacidosis Dehydration Acute kidney injury Hyperkalemia Hypokalemia 34-year-old female diabetic came with diabetic ketoacidosis and was treated aggressively with IV fluids and insulin and she improved quickly Today she is asymptomatic We checked her electrolytes again today and they are normal and therefore she will be discharged home Resume the home medications and follow up with her primary care physician as soon as possible Condition at Discharge: Stable Final Diagnosis/Problems List DKA Dehydration REAL Hyperkalemia Hypokalemia Discharge Disposition: Home SNF Discharge Will this Physician continue t: No Discharge Instruct/Medications Diet: Consistent carbohydrate Activity: No Restrictions, As Tolerated Follow Up/Referral: PCP TIN Medications: Same home meds Discharge Statement: "Patient was advised to return to the ER or call 911 if any headaches, dizziness, shortness of breath, chest pain, abdominal pain, bleeding, fevers, or worsening of medical condition. Patient was counseled about treatment plan, medications, possible side effects, patientverbalized understanding. All questions were answered to the best of my ability. This discharge took greater then 30 minutes in planning, reviewing documentation, counseling the patient, and discussing with other team members." ASSESSMENT ASSESSMENT Assessment DKA REAL Date of Service: May 26, 2024 Billing Provider: JOE GARCIA MD Common Visit Codes: [id number] DISCH DAY >30min JOE GARCIA MD May 26, 2024 13:25
[2024-05-26 14:02] VITALS: TEMP 98.7
== END 2024-05-26 15:30 | disposition home or self-care (01) | DRG 420 ==
LOC: ER 23:26 → OVERFLOW 05-24 04:48 → TELE-CENTR 05-24 17:25
PROVIDERS: ADMIT Internal Medicine; ATTEND Internal Medicine Geriatric Medicine
DX: E11.10 Type 2 diabetes mellitus with ketoacidosis without coma (principal); R65.11 Systemic inflammatory response syndrome (SIRS) of non-infectious origin with acute organ dysfunction; N17.0 Acute kidney failure with tubular necrosis; D45 Polycythemia vera; D72.829 Elevated white blood cell count, unspecified; D75.839 Thrombocytosis, unspecified; I10 Essential (primary) hypertension; E87.5 Hyperkalemia; E86.0 Dehydration; E87.6 Hypokalemia; Z79.4 Long term (current) use of insulin; Z79.899 Other long term (current) drug therapy
CPT/HCPCS: 36415; 71046; 80048; 80053; 81001; 82010; 82962; 83735; 83930; 84100; 85007; 85025; 85027; 87040; 99291; G0378; J1815; J2405; J3490